=== PATIENT | female | born 1960 | race Two or more races ===

== ENCOUNTER 2023-10-25 16:29 | Emergency (ER) | payer MEDICARE, OTHER ==
[~2023-10-25] VITALS: Ht 162.6 cm; Wt 104.3 kg
[2023-10-25] MEDS ORDERED: SUMATRIPTAN SUCCINATE 6 MG/0.5 ML VIAL SQ ONE (17:40)
[2023-10-25] MEDS ORDERED: METOCLOPRAMIDE HCL 10 MG/2 ML VIAL ONE (17:41)
[2023-10-25] MEDS ORDERED: KETOROLAC TROMETHAMINE INJ 30 MG/ML VIAL ONE (17:41)
[2023-10-25] MEDS: SUMATRIPTAN SUCCINATE 6 MG/0.5 ML VIAL SQ ONE (18:10)
[2023-10-25] MEDS: METOCLOPRAMIDE HCL 10 MG/2 ML VIAL IV ONE (18:10)
[2023-10-25] MEDS: KETOROLAC TROMETHAMINE INJ 30 MG/ML VIAL IV ONE (18:10)
[2023-10-25] MEDS: IV NS 0.9% 1,000 ML BAG IV ONE (18:10)
[2023-10-25] MEDS ORDERED: SUMA100T PO (18:49)
[2023-10-25] MEDS ORDERED: KETO10TA2 PO (18:49)
[2023-10-25] MEDS ORDERED: ZOLP5TAB2 PO (18:49)
[2023-10-25 21:56] VITALS: BP 123/76; TEMP 98; O2SAT 99
== END 2023-10-25 21:57 | disposition home health service (06) ==
LOC: ER 16:50
DX: G47.00 Insomnia, unspecified (principal); R51.9 Headache, unspecified; E11.9 Type 2 diabetes mellitus without complications; F20.9 Schizophrenia, unspecified; E03.9 Hypothyroidism, unspecified
CPT/HCPCS: 99285; 96374; 70450; 96361; 96375; 96372; J3030; J2765; J1885; J7030